=== PATIENT | female | born 1950 | race Caucasian/White ===

== ENCOUNTER 2016-09-02 16:19 | Observation (INO) | payer MEDICAID ==
[~2016-09-02] VITALS: Ht 149.9 cm; Wt 88.5 kg
[~2016-09-02 16:19] MED LIST: AUGMENTIN875TAB PO; BD INSULIN0.5 MG/31 XX; CETIRIZ/PSE1 TAB PO; CIPROFLOXACN500 MG PO; CRESTOR40 MG PO; DULCOLAX5 MG PO; ENALAPRIL20 MG OR; FLONASE NASAL50 MCG; HYDROCO/APAP1 T10 PO; LABETALOL200 MG PO; LEVEMIR1000 UNITS SC; LIPITOR10 M1 PO; LIPITOR10 MG PO; MAXZIDE-2537.5 MG/TA PO; METFORMIN500 MG PO; NIFEDIPINE60 MG PO; SENNA-PLUS1 TAB PO; ULTRAM50 M1 PO; VITAMIN D2000 UNI2 PO; ZESTRIL40 MG PO; ZOFRAN4 MG PO; ZPAK PO
[2016-09-02] MEDS ORDERED: LISINOPRIL/HYDR1 TA1 PO (16:37)
[2016-09-02 17:44] LABS: HEMATOCRIT 33.2 % (37.0-47.0); HEMOGLOBIN 11.7 g/dl (12.0-16.0); IMMATURE GRANULOCYTES 0.3 % (0.0-1.0); MEAN CELL VOLUME 97.6 fL CALC (80.0-100.0); MEAN CORPUSCULAR HGB 34.4 pG CALC (26.0-32.0); MEAN CORPUSCULAR HGB CONC 35.2 g/L CALC (32.0-36.0); NEUT# 1.69 thou/uL (2.00-7.15); RED BLOOD COUNT 3.4 mill/uL (4.20-5.60); RED CELL DISTRI WIDTH 17.1 % (11.5-15.5)
[2016-09-02 17:54] LABS: ALBUMIN 4.3 g/dL (3.2-5.0); ALKALINE PHOSPHATASE 75 u/l (38-126); AMYLASE 50 u/l (30-110); ANION GAP 16 (6-22 (CALC)); BILIRUBIN, TOTAL 0.5 mg/dL (0.0-1.4); BUN 29 mg/dL (8-23); BUN/CREATININE RATIO 47 (12-20 (CALC)); CARBON DIOXIDE 30 mmol/l (22-30); CHLORIDE 93 mmol/l (95-108); CREATININE 0.6 mg/dL (0.5-1.0); GFR > 60 ML/MIN (>=60 (CALC)); GFR FOR AFR.AMER. > 60 ML/MIN (>=60 (CALC)); GLUCOSE 315 mg/dL (82-115); LIPASE 86 u/l (23-300); POTASSIUM 4.1 mmol/l (3.5-5.1); SGOT/AST 26 u/l (9-36); SGPT/ALT 33 u/l (11-66); SODIUM 134 mmol/l (137-146); TOTAL PROTEIN 7.7 g/dL (6.3-8.2)
[2016-09-02 18:06] LABS: MYOGLOBIN 20 ng/mL (0 - 62)
[2016-09-02] MEDS ORDERED: ATENOLOL100 MG PO (18:38)
[2016-09-02] MEDS ORDERED: LEVEMIR100 UNIT/M SC (18:39)
[2016-09-02] MEDS ORDERED: METFORMIN500 M2 PO (18:40)
[2016-09-02] MEDS ORDERED: CALCIUM1250 MG PO (18:41)
[2016-09-02] MEDS ORDERED: B12 LIQUID PO (18:41)
[2016-09-02] MEDS ORDERED: FEMARA2.5 M1 PO (18:42)
[2016-09-02] MEDS ORDERED: IBRANCE PO (18:44)
[2016-09-02 19:25] VITALS: BP 158/52
[2016-09-02 21:56] LABS: MAGNESIUM 1.4 mg/dL (1.6-2.3)
[2016-09-03 00:45] VITALS: BP 156/71
[2016-09-03 03:25] VITALS: BP 152/74
[2016-09-03 04:34] LABS: URINE BILIRUBIN - DIPSTICK NEGATIVE (NEGATIVE); URINE BLOOD DIPSTICK TRACE-INTACT (NEGATIVE); URINE CLARITY CLEAR; URINE COLOR YELLOW; URINE GLUCOSE - DIPSTICK 100 mg/dL (NEGATIVE); URINE KETONE NEGATIVE (NEGATIVE); URINE LEUK ESTERASE TRACE (NEGATIVE); URINE NITRITE - DIPSTICK NEGATIVE (Negative); URINE PH 5.5 (4.5-8.0); URINE PROTEIN - DIPSTICK 30 mg/dL (NEG-TRACE); URINE SPECIFIC GRAVITY 1.015; URINE UROBILINOGEN - DIPSTICK 0.2 E.U./dL (0.2)
[2016-09-03 04:35] LABS: URINE BACTERIA FEW hpf; URINE MUCUS FEW hpf (NONE-FEW); URINE RBC 0-2 RBC/hpf (0-5); URINE SQUAMOUS EPITHELIAL CELL FEW EPI/hpf (0-FEW)
[2016-09-03 05:50] LABS: HEMATOCRIT 29.9 % (37.0-47.0); HEMOGLOBIN 10.6 g/dl (12.0-16.0); IMMATURE GRANULOCYTES 0.6 % (0.0-1.0); MEAN CELL VOLUME 98.7 fL CALC (80.0-100.0); MEAN CORPUSCULAR HGB CONC 35.5 g/L CALC (32.0-36.0); RED BLOOD COUNT 3.03 mill/uL (4.20-5.60); RED CELL DISTRI WIDTH 16.9 % (11.5-15.5)
[2016-09-03 05:58] LABS: CHOLESTEROL HDL RATIO 4.3 (<4.4 (CALC))
[2016-09-03 05:59] LABS: ALBUMIN 3.5 g/dL (3.2-5.0); ALKALINE PHOSPHATASE 63 u/l (38-126); ANION GAP 12 (6-22 (CALC)); BILIRUBIN, TOTAL 0.4 mg/dL (0.0-1.4); BUN 20 mg/dL (8-23); BUN/CREATININE RATIO 36 (12-20 (CALC)); CALCIUM 9.6 mg/dL (8.4-10.2); CARBON DIOXIDE 31 mmol/l (22-30); CHLORIDE 99 mmol/l (95-108); CREATININE 0.6 mg/dL (0.5-1.0); GFR > 60 ML/MIN (>=60 (CALC)); GFR FOR AFR.AMER. > 60 ML/MIN (>=60 (CALC)); GLUCOSE 179 mg/dL (82-115); POTASSIUM 3.7 mmol/l (3.5-5.1); SGOT/AST 20 u/l (9-36); SGPT/ALT 28 u/l (11-66); SODIUM 139 mmol/l (137-146); TOTAL PROTEIN 6.1 g/dL (6.3-8.2)
[2016-09-03 06:31] LABS: PLATELET COUNT 120 thou/uL (130-400)
[2016-09-03 06:32] LABS: MANUAL DIFFERENTIAL YES
[2016-09-03 06:33] LABS: ANISOCYTOSIS MODERATE
[2016-09-03 06:34] LABS: OVALOCYTES FEW; POLYCHROMASIA FEW; SPHEROCYTE FEW; STOMATOCYTE FEW; TEAR DROP CELLS FEW
[2016-09-03 07:33] VITALS: BP 156/68
[2016-09-03 07:40] VITALS: BP 156/68
[2016-09-03] MEDS ORDERED: ASPIRIN ADULT L81 M2 PO (10:26)
[2016-09-03] MEDS ORDERED: ATORVASTATIN CA10 MG PO (10:26)
== END 2016-09-03 12:06 | disposition home or self-care (01) | DRG 313 ==
LOC: ENPENDDIS → ED 16:19 → ED-I 18:12 → ED 18:20 → MS2 18:21
PROVIDERS: Emergency Medicine; Internal Medicine; ADMIT Internal Medicine; ATTEND Internal Medicine
DX: R07.9 Chest pain, unspecified (principal); C50.919 Malignant neoplasm of unspecified site of unspecified female breast; E83.52 Hypercalcemia; E11.65 Type 2 diabetes mellitus with hyperglycemia; I10 Essential (primary) hypertension; E86.0 Dehydration; E78.5 Hyperlipidemia, unspecified; R60.9 Edema, unspecified; D72.819 Decreased white blood cell count, unspecified; Z79.899 Other long term (current) drug therapy; Z79.84 Long term (current) use of oral hypoglycemic drugs
CPT/HCPCS: G0378

== ENCOUNTER 2017-01-24 21:51 | Emergency (ER) | payer MEDICAID ==
[~2017-01-24] VITALS: Ht 149.9 cm; Wt 80.9 kg
[~2017-01-24 21:51] MED LIST changes: +ASPIRIN ADULT L81 M2 PO; +ATENOLOL100 MG PO; +ATORVASTATIN CA10 MG PO; +B12 LIQUID PO; +CALCIUM1250 MG PO; +FEMARA2.5 M1 PO; +IBRANCE PO; +LEVEMIR100 UNIT/M SC; +LISINOPRIL/HYDR1 TA1 PO; +METFORMIN500 M2 PO
[2017-01-24 22:59] LABS: URINE BILIRUBIN - DIPSTICK NEGATIVE (NEGATIVE); URINE BLOOD DIPSTICK LARGE (NEGATIVE); URINE COLOR YELLOW; URINE GLUCOSE - DIPSTICK NEGATIVE (NEGATIVE); URINE KETONE NEGATIVE (NEGATIVE); URINE NITRITE - DIPSTICK NEGATIVE (Negative); URINE PH 6.5 (4.5-8.0); URINE PROTEIN - DIPSTICK 100 mg/dL (NEG-TRACE); URINE SPECIFIC GRAVITY 1.015; URINE UROBILINOGEN - DIPSTICK 0.2 E.U./dL (0.2)
[2017-01-24 23:00] LABS: URINE CLARITY TURBID; URINE LEUK ESTERASE SMALL (NEGATIVE)
[2017-01-24 23:09] LABS: URINE BACTERIA FEW hpf; URINE RBC 25-50 RBC/hpf (0-5); URINE SQUAMOUS EPITHELIAL CELL FEW EPI/hpf (0-FEW)
[2017-01-24] MEDS ORDERED: PYRIDIUM200 MG PO (23:15)
[2017-01-24] MEDS ORDERED: CIPROFLOXACN500 MG PO (23:15)
[2017-01-24 23:40] VITALS: BP 158/78
== END 2017-01-24 23:40 | disposition home or self-care (01) | DRG 690 ==
LOC: ED 21:51
PROVIDERS: Emergency Medicine
DX: N39.0 Urinary tract infection, site not specified (principal); B96.20 Unspecified Escherichia coli [E. coli] as the cause of diseases classified elsewhere; R30.0 Dysuria; R33.9 Retention of urine, unspecified

== ENCOUNTER 2017-03-02 11:14 | Emergency (ER) | payer MEDICAID ==
[~2017-03-02 11:14] MED LIST changes: +PYRIDIUM200 MG PO
[2017-03-02 11:33] LABS: HEMATOCRIT 29.6 % (37.0-47.0); HEMOGLOBIN 8.8 g/dl (12.0-16.0); MEAN CELL VOLUME 84.3 fL CALC (80.0-100.0); MEAN CORPUSCULAR HGB 25.1 pG CALC (26.0-32.0); MEAN CORPUSCULAR HGB CONC 29.7 g/L CALC (32.0-36.0); RED BLOOD COUNT 3.51 mill/uL (4.20-5.60); RED CELL DISTRI WIDTH 25.2 % (11.5-15.5)
[2017-03-02 11:55] LABS: ALBUMIN 3.4 g/dL (3.2-5.0); ALKALINE PHOSPHATASE 825 u/l (38-126); ANION GAP 17 (6-22 (CALC)); BILIRUBIN, TOTAL 0.9 mg/dL (0.0-1.4); BUN 43 mg/dL (8-23); BUN/CREATININE RATIO 43 (12-20 (CALC)); CALCIUM 9.6 mg/dL (8.4-10.2); CARBON DIOXIDE 27 mmol/l (22-30); CHLORIDE 98 mmol/l (95-108); GFR 56 ML/MIN (>=60 (CALC)); GFR FOR AFR.AMER. > 60 ML/MIN (>=60 (CALC)); GLUCOSE 92 mg/dL (82-115); SGOT/AST 404 u/l (9-36); SGPT/ALT 126 u/l (11-66); SODIUM 137 mmol/l (137-146); TOTAL PROTEIN 6.8 g/dL (6.3-8.2)
[2017-03-02 11:58] LABS: POTASSIUM 5.3 mmol/l (3.5-5.1)
[2017-03-02 12:09] LABS: MYOGLOBIN 53 ng/mL (0 - 62)
[2017-03-02 12:27] LABS: NEUT# 11.93 thou/uL (2.00-7.15)
[2017-03-02 12:29] LABS: IMMATURE GRANULOCYTES 5.6 % (0.0-1.0)
[2017-03-02 12:42] LABS: URINE BILIRUBIN - DIPSTICK NEGATIVE (NEGATIVE); URINE BLOOD DIPSTICK NEGATIVE (NEGATIVE); URINE COLOR YELLOW; URINE GLUCOSE - DIPSTICK NEGATIVE (NEGATIVE); URINE KETONE NEGATIVE (NEGATIVE); URINE LEUK ESTERASE TRACE (NEGATIVE); URINE NITRITE - DIPSTICK NEGATIVE (Negative); URINE PH 5.5 (4.5-8.0); URINE PROTEIN - DIPSTICK 100 mg/dL (NEG-TRACE); URINE SPECIFIC GRAVITY 1.015; URINE UROBILINOGEN - DIPSTICK 0.2 E.U./dL (0.2)
[2017-03-02 12:52] LABS: COCAINE NEGATIVE (NEGATIVE); METHADONE NEGATIVE (NEGATIVE); TETRAHYDROCANNABIONOL NEGATIVE (NEGATIVE); URINE CLARITY HAZY; URINE EPITHELIAL CELLS MODERATE EPI/hpf (0-FEW); URINE WBC 0-2 WBC/hpf (0-5)
[2017-03-02 12:53] LABS: BARBITURATES NEGATIVE (NEGATIVE); OXCYCODONE NEGATIVE (NEGATIVE); TRICYLIC ANTIDEPRESSANTS NEGATIVE (NEGATIVE)
[2017-03-02 15:31] VITALS: BP 116/61
== END 2017-03-02 15:38 | disposition short-term general hospital (02) | DRG 100 ==
LOC: ED 11:14 → EDBD 11:14 → ED 11:14
PROVIDERS: Emergency Medicine
PROC: 0BH17EZ Insertion of Endotracheal Airway into Trachea, Via Natural or Artificial Opening (ICD-10-PCS; principal; 2017-03-02)
PROC: 0T9B70Z Drainage of Bladder with Drainage Device, Via Natural or Artificial Opening (ICD-10-PCS; 2017-03-02)
PROC: 5A1935Z Respiratory Ventilation, Less than 24 Consecutive Hours (ICD-10-PCS; 2017-03-02)
DX: R56.9 Unspecified convulsions (principal); J96.90 Respiratory failure, unspecified, unspecified whether with hypoxia or hypercapnia; E16.2 Hypoglycemia, unspecified
CPT/HCPCS: J2060; J3360